=== PATIENT | male | born 1980 | race Asian ===

== ENCOUNTER 2019-01-18 06:29 | Emergency (ER) | payer BC ==
[~2019-01-18] VITALS: Ht 170.2 cm; Wt 102.1 kg
[2019-01-18 06:44] VITALS: BP 142/87
[2019-01-18] MEDS ORDERED: KETOROLAC TROMETH 60MG/2ML VIAL IM ONE (07:30)
== END 2019-01-18 07:49 | disposition home or self-care (01) ==
LOC: ER 06:29
DX: M10.072 Idiopathic gout, left ankle and foot (principal)
CPT/HCPCS: 36415; 73630; 84550; 96372; 99284; J1885

== ENCOUNTER → 2020-05-02 | Emergency (ER) | payer BC ==
[~2020-05-02] VITALS: Ht 167.6 cm; Wt 108.9 kg
[2020-05-02 05:56] VITALS: BP 152/100
== END | disposition home or self-care (01) ==
LOC: ER 05:45
DX: M10.9 Gout, unspecified (principal); Z76.0 Encounter for issue of repeat prescription